=== PATIENT | male | born 1975 | race American Indian/Alaskan Native ===

== ENCOUNTER 2021-01-09 00:27 | Emergency (ER) | payer SELFPAY ==
[2021-01-09] MEDS ORDERED: IBUPROFEN 600 MG TAB PO ONE (00:35)
[2021-01-09] MEDS ORDERED: predniSONE 20 MG TAB PO ONE (00:35)
--- NOTE | 2021-01-09 01:18 | Emergency Department Report ---
ED Extremity Problem HPI - General Chief complaint: Extremity Problem,Nontraumatic Stated complaint: ELBOW DISCOMFORT/PAIN Source: patient Mode of arrival: Ambulatory Limitations: Physical Limitation - History of Present Illness Initial comments: Patient is a 45-year-old -[place] male with a history of osteoarthritis who presents to the ED with complaint of acute onset painful swollen posterior right elbow joint with effusion for the last 1 week. Patient states that he has previously had similar symptoms about 2 months ago and had to have the joint fluid drained from the right elbow. 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 Patient denies fall, traumatic injury, dizziness, syncope, fever, chills, nausea, vomiting, neck pain or heavy lifting. MD Complaint: extremity pain (right elbow), extremity swelling (right elbow), joint swelling (right elbow), joint paint (right elbow) -: Sudden, week(s) (1) Location: right, upper extremity (elbow), elbow (right elbow pain and swelling) History of Same: Yes -: Yes arthralgia Radiation: none Severity scale (0 -10): 7 Quality: aching, sharp Consistency: constant Improves with: nothing Worsens with: weight bearing, exertion, palpation Associated Symptoms: denies other symptoms, arthralgias (right elbow). denies: chest pain, shortness of breath - Related Data Previous Rx's Medication Instructions Recorded Last Taken Type Naproxen 500 mg PO Q12H PRN #30 tablet 01/09/21 Unknown Rx predniSONE [Deltasone] 40 mg PO QDAY #12 tab 01/09/21 Unknown Rx Allergies Allergy/AdvReac Type Severity Reaction Status Date / Time No Known Allergies Allergy Unverified 01/09/21 01:22 ED Review of Systems ROS: Stated complaint: ELBOW DISCOMFORT/PAIN Other details as noted in HPI Constitutional: denies: chills, fever Eyes: denies: eye pain, eye discharge, vision change ENT: denies: ear pain, throat pain Respiratory: denies: cough, shortness of breath, wheezing Cardiovascular: denies: chest pain, palpitations Endocrine: no symptoms reported Gastrointestinal: denies: abdominal pain, nausea, diarrhea Genitourinary: denies: urgency, dysuria Musculoskeletal: joint swelling (Posterior right elbow swelling with effusion), arthralgia (Posterior right elbow pain and swelling). denies: back pain Skin: denies: rash, lesions Neurological: denies: headache, weakness, paresthesias Psychiatric: denies: anxiety, depression Hematological/Lymphatic: denies: easy bleeding, easy bruising ED Past Medical Hx - Medications Home Medications: Home Medications Medication Instructions Recorded Confirmed Last Taken Type Naproxen 500 mg PO Q12H PRN #30 tablet 01/09/21 Unknown Rx predniSONE [Deltasone] 40 mg PO QDAY #12 tab 01/09/21 Unknown Rx ED Physical Exam - General Limitations: Physical Limitation General appearance: alert, in no apparent distress - Head Head exam: Present: atraumatic, normocephalic, normal inspection - Eye Eye exam: Present: normal appearance, PERRL, EOMI Pupils: Present: normal accommodation - ENT ENT exam: Present: normal exam, normal orophraynx, mucous membranes moist, TM's normal bilaterally, normal external ear exam - Neck Neck exam: Present: normal inspection, full ROM - Respiratory Respiratory exam: Present: normal lung sounds bilaterally. Absent: respiratory distress, wheezes, rales, rhonchi, chest wall tenderness, decreased breath sounds - Cardiovascular Cardiovascular Exam: Present: regular rate, normal rhythm, normal heart sounds. Absent: systolic murmur, diastolic murmur, rubs, gallop - GI/Abdominal GI/Abdominal exam: Present: soft, normal bowel sounds. Absent: tenderness, guarding, rebound, hyperactive bowel sounds, hypoactive bowel sounds, organomegaly - Extremities Exam Extremities exam: Present: normal inspection, full ROM, tenderness (Palpable posterior right elbow tenderness with joint swelling and effusion), normal capillary refill, joint swelling (Posterior right elbow swelling and effusion) - Back Exam Back exam: Present: normal inspection, full ROM. Absent: tenderness, CVA tenderness (R), CVA tenderness (L), muscle spasm, paraspinal tenderness - Neurological Exam Neurological exam: Present: alert, oriented X3, CN II-XII intact, normal gait, reflexes normal - Psychiatric Psychiatric exam: Present: normal affect, normal mood - Skin Skin exam: Present: warm, dry, intact, normal color. Absent: rash ED Course Vital Signs 01/09/21 01:10 Respiratory 20 Rate ED Medical Decision Making - Medical Decision Making This is a 45-year-old -[place] male with a history of osteoarthritis who presents to the ED with complaint of acute onset painful swollen posterior right elbow joint with effusion for the last 1 week. Patient states that he has previously had similar symptoms about 2 months ago and had to have the joint fluid drained from the right elbow. 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 In the ED, patient is alert and oriented x3 and is not in distress. Patient was treated for pain in the ED and on reevaluation, patient's pain is well controlled medications. Patient was discharged home on pain medications and given a referral to the orthopedic surgeon on-call Dr. Cuevas for follow-up. Patient was advised to contact Dr. Cuevas's office first in the morning to schedule a follow-up appointment for further evaluation. Patient is advised return to the ED immediately if symptoms get worse. - Differential Diagnosis Chronic osteoarthritis; elbow bursitis; elbow joint effusion Critical care attestation.: If time is entered above; I have spent that time in minutes in the direct care of this critically ill patient, excluding procedure time. ED Disposition Clinical Impression: Chronic pain of right elbow, Chronic osteoarthritis, Effusion of bursa of right elbow Disposition: DC- TO HOME OR SELFCARE Is pt being admited?: No Does the pt Need Aspirin: No Condition: Stable Instructions: Arthritis, [id number], Joint Pain, [id number] Additional Instructions: Your symptoms are due to osteoarthritis of your right elbow. Therefore take medication with food, drink plenty of fluids and follow-up with your primary care physician in 7 to 10 days for reevaluation. Consider following up with the orthopedic surgeon Dr. Cuevas for further evaluation of your joint pain and swelling. Return to the ED immediately if symptoms get worse. Prescriptions: predniSONE [Deltasone] 40 mg PO QDAY #12 tab Naproxen 500 mg PO Q12H PRN #30 tablet PRN Reason: Pain , Severe (7-10) Referrals: RADHA CUEVAS MD [Staff Physician] - 7-10 days Time of Disposition: 01:15 Print Language: [place]
== END 2021-01-09 01:33 | disposition home or self-care (01) ==
LOC: ED 00:27
DX: M25.421 Effusion, right elbow (principal); M19.90 Unspecified osteoarthritis, unspecified site; Z79.899 Other long term (current) drug therapy
CPT/HCPCS: 99282; J7512